=== PATIENT | female | born 1985 | race Hispanic/Latino ===

== ENCOUNTER 2016-06-03 10:07 | Inpatient (IN) | payer OTHER ==
[~2016-06-03] VITALS: Ht 154.9 cm; Wt 86.2 kg
[2016-06-03] MEDS ORDERED: PRENATAL TABLE1 EAC2 PO (10:31)
[2016-06-03 11:10] LABS: ABSOLUTE BASOPHIL COUNT 0 /CUMM (0.0-0.2); ABSOLUTE EOSINOPHIL COUNT 0.1 /CUMM (0.0-0.7); ABSOLUTE GRANULOCYTE CT 6.4 /CUMM (1.4-6.5); BASOPHIL % 0.4 % (0.0-2.0); EOSINOPHIL % 0.8 % (0-5); MEAN CORPUSCULAR HGB 28.4 PG (27.0-31.0); MEAN CORPUSCULAR HGB CONC 33.2 G/DL (33.0-37.0); MEAN CORPUSCULAR VOLUME 85.6 FL (81.0-99.0); MEAN PLATELET VOLUME 12.8 FL (7.4-10.4); PLATELET COUNT 197 /CUMM (130-400); RBC DISTRIBUTION WIDTH 14.7 % (11.5-14.5); RED BLOOD CELL CT 3.98 /CUMM (4.20-5.40); WHITE BLOOD CELL COUNT 9.6 /CUMM (4.8-10.8)
--- NOTE | 2016-06-03 12:26 | History & Physical ---
General Information and HPI MD Statement: I have seen and personally examined THELMA FAGAN and documented this H&P. The patient is a 31 year old female at 39[] weeks and [] days gestation who presented with a chief complaint of []. OLIGO History of Present Illness: 31 WITH LOW FLUID AT 6 NEGATIVE AMNISURE. 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 Last Menstrual Period: 08/2015 Past senior media director History: oligohydramnios Surgical History Pertinent Surgical History: none (ECTOPIC) Past Family/Social History Psychosocial History Smoking Status: Never Smoked Review of Systems Review of Systems: STATED IN HPI Exam & Diagnostic Data Last 24 Hrs of Vital Signs/I&O Intake & Output 06/03 1600 06/03 0800 06/03 0000 Intake Total Output Total Balance Patient 190 lb Weight Obstetric Exam Wgt Gained During : 29 Pelvimetry: TESTED TO 76 Dilation (cm): 1 Effacement (%): 50 Station: 0 Membranes: intact Fluid: unknown Fundal Height (cm): 40 Multiple Gestation? No Contractions: NONE Patient for Induction? Yes Ho Score Ho Score Response Value Cervix Position: anterior 2 Cervix Consistency: soft 2 Cervix Effacement: 30-50% 1 Cervix Dilation: 1-2 cm 1 Total 6 Physical Exam: PE THIN HF IN NAD HEENT PERRLA EOMI LUNGS CLEAR ABD SOFT EXT -EDEMA Labs Blood Type & Rh: A+ Antibody Screen: NEG Hct/Hgb & Platelets #1: /214 Hct/Hgb & Platelets #2: /169 Rubella: NR VDRL #1: NR VDRL #2: NR HbsAg: NEG HIV #1: NEG HIV #2 NEG 1 Hr P Group B Strep: NEG Initial Ultrasound: NL Anatomy Ultrasound: NL Genetic Testing: NEG Assessment/Plan As Ranked By This Provider Problem List: 1. Core Measures/Miscellaneous Venous Thromboembolism VTE Risk Factors: No Risk Factors VTE Contraindications: No Contraindications VTE Diagnosis: No VTE Type: NONE Beta Sana Is Beta Sana a Home Med? No Antibiotics Is Patient on Antibiotics? No
--- NOTE | 2016-06-03 12:28 | PN- Obstetrical ---
Subjective Subjective: EXPLAINED MISOPROSTIL RISKS Objective Last 24 Hrs of Vital Signs/I&O Intake & Output 06/03 1600 06/03 0800 06/03 0000 Intake Total Output Total Balance Patient 190 lb Weight Obstetric Exam Dilation (cm): 1 Effacement (%): 50 Station: 0 Membranes: intact Fluid: unknown Multiple Gestation? No Contractions: NONE Assessment/Plan Assessment/Plan ASSESS TERM OLIGO PLAN SERIAL INDUCTION MISO Problem List: 1. Attending MD Review Statement Attending Statement Attending MD Statement: examined this patient
--- NOTE | 2016-06-03 20:52 | PN- Obstetrical ---
Subjective Subjective: C/O CTX Objective Last 24 Hrs of Vital Signs/I&O Intake & Output 06/03 1600 06/03 0800 06/03 0000 Intake Total Output Total Balance Patient 190 lb Weight Physical Exam: PE PALE HFIN NAD ABD SOFT NT Obstetric Exam Dilation (cm): 2 Effacement (%): 80 Station: 0 Membranes: intact Fluid: unknown Multiple Gestation? No Contractions: Q 5 MINUTES Assessment/Plan Assessment/Plan TERM OLIGO PLAN OBSERVE
--- NOTE | 2016-06-04 08:40 | PN- Obstetrical ---
Subjective Subjective: C/O PAIN WANTS EPIDURAL Objective Last 24 Hrs of Vital Signs/I&O PER CHART Obstetric Exam Dilation (cm): 5 Effacement (%): 100 Station: 0 Membranes: intact Fluid: unknown Multiple Gestation? No Contractions: 2 6 MINUTES Assessment/Plan Assessment/Plan ASSESS TERM PLAN OBSERVE FOR EPIDURAL PITOCIN
--- NOTE | 2016-06-04 12:52 | Labor & Delivery Summary ---
Delivery Summary Vaginal Delivery: Vaginal: vertex Episiotomy/Lacerations: Episiotomy/Lacerations: 1ST DEGREE Placenta: Placenta: spontanteous, normal, 3 vessel Anesthesia: block Additional Comments: VIABLE MAKLE OVER 1ST DEGREE
[2016-06-05 10:34] LABS: ABSOLUTE BASOPHIL COUNT 0.1 /CUMM (0.0-0.2); ABSOLUTE EOSINOPHIL COUNT 0.1 /CUMM (0.0-0.7); ABSOLUTE LYMPH COUNT 2.9 /CUMM (1.2-3.4); ABSOLUTE MONOCYTE COUNT 1.1 /CUMM (0.10-0.60); BASOPHIL % 0.6 % (0.0-2.0); EOSINOPHIL % 1.1 % (0-5); GRANULOCYTE % 65.1 % (42.2-75.2); HEMATOCRIT 31.4 % (37-47); MEAN CORPUSCULAR HGB 28.4 PG (27.0-31.0); MEAN CORPUSCULAR HGB CONC 33.3 G/DL (33.0-37.0); MEAN CORPUSCULAR VOLUME 85.2 FL (81.0-99.0); MEAN PLATELET VOLUME 13.2 FL (7.4-10.4); RBC DISTRIBUTION WIDTH 15.3 % (11.5-14.5); RED BLOOD CELL CT 3.68 /CUMM (4.20-5.40); WHITE BLOOD CELL COUNT 12.3 /CUMM (4.8-10.8)
[2016-06-05 11:09] LABS: PLATELET COUNT 163 /CUMM (130-400)
[2016-06-06] MEDS ORDERED: IBUPROFEN800 M1 PO (08:52)
== END 2016-06-06 12:00 | DRG 560 ==
LOC: GNO 10:07
PROVIDERS: ADMIT Specialist
PROC: 3E033VJ Introduction of Other Hormone into Peripheral Vein, Percutaneous Approach (ICD-10-PCS; 2016-06-03)
PROC: 0HQ9XZZ Repair Perineum Skin, External Approach (ICD-10-PCS; principal; 2016-06-04)
PROC: 10E0XZZ Delivery of Products of Conception, External Approach (ICD-10-PCS; principal; 2016-06-04)
DX: O41.03X0 Oligohydramnios, third trimester, not applicable or unspecified (principal); O70.0 First degree perineal laceration during delivery; Z3A.39 39 weeks gestation of pregnancy; Z37.0 Single live birth
CPT/HCPCS: GNOP; GNOS; 36415; 81001; 87086; J7120